=== PATIENT | male | born 1940 | race Hispanic/Latino ===

== ENCOUNTER 2019-06-20 07:37 | Emergency (ER) | payer MEDICARE ==
[~2019-06-20 07:37] MED LIST: DOXA8TAB81 PO; FINA5TAB41 PO; LEVO50TA11 PO; PRAV20TA4 PO
[2019-06-20] MEDS ORDERED: ASPIRIN 325 MG TABLET ONE (07:45)
[2019-06-20 08:15] LABS: BASOPHILS % (AUTO) 0.7 % (0.0-5.0); EOSINOPHILS % (AUTO) 2.9 % (0.0-8.0); HEMATOCRIT 44.4 % (42-54); LYMPHOCYTES % (AUTO) 37.5 % (21.0-51.0); MEAN CORPUSCULAR HEMOGLOBIN 28.7 pg (27.0-33.0); MEAN CORPUSCULAR HGB CONC 33.1 g/dL (32.0-36.0); MEAN CORPUSCULAR VOLUME 86.5 fL (79-99); MONOCYTES % (AUTO) 10.2 % (3.0-13.0); NEUTROPHILS % (AUTO) 47.9 % (40.0-77.0); PLATELET COUNT (AUTO) 232 K/uL (130-400); RED BLOOD CELL COUNT(AUTO) 5.13 MIL/uL (4.50-6.20); RED CELL DISTRIBUTION WIDTH 13.5 % (11.0-15.5); WHITE BLOOD COUNT (AUTO) 7.1 K/uL (4.8-10.8)
[2019-06-20 08:25] LABS: POTASSIUM 4.1 mmol/L (3.5-5.1)
[2019-06-20 08:30] LABS: ALBUMIN 3.4 g/dL (3.5-5.0); BILIRUBIN,TOTAL 0.5 mg/dL (0.2-1.0); TOTAL PROTEIN, SERUM 6.6 g/dL (6.0-8.3)
[2019-06-20] MEDS ORDERED: DIAZEPAM 5 MG TABLET ONE (08:46)
[2019-06-20] MEDS ORDERED: IPRATROPIUM/ALBUTEROL SULFATE 3 ML SOLUTION IH ONE (08:56)
[2019-06-20 08:57] LABS: B-TYPE NATRIURETIC PEPTIDE 7 pg/mL (0-100)
[2019-06-20 09:37] LABS: INR 0.91 (0.85-1.15); PARTIAL THROMBOPLASTIN TIME 27.1 SEC (26.3-35.5); PROTHROMBIN TIME 9.6 SEC (9.6-11.6)
== END 2019-06-20 11:46 | disposition home or self-care (01) ==
LOC: EDH 07:37
DX: R07.89 Other chest pain (principal); J44.9 Chronic obstructive pulmonary disease, unspecified; I10 Essential (primary) hypertension; Z72.0 Tobacco use
CPT/HCPCS: 36415; 71045; 80053; 82550; 83880; 84484; 85025; 85610; 85730; 93005; 94640

== ENCOUNTER → 2020-09-09 | Outpatient (CLI) | payer MEDICARE | END | disposition home or self-care (01) | LOC: RAH 12:25 | PROVIDERS: ATTEND Urology | DX: I86.1 Scrotal varices (principal); N45.3 Epididymo-orchitis | CPT/HCPCS: 76870 ==